=== PATIENT | male | born 1975 | race Caucasian/White ===

== ENCOUNTER 2025-02-06 11:24 | Emergency (ER) | payer MEDICAID ==
[~2025-02-06] VITALS: Ht 172.7 cm; Wt 81.6 kg
[2025-02-06] MEDS ORDERED: oxyCODONE/APAP (5/325 MG) 1 UDTAB TABLET ONE ×2 (12:17→14:21)
[2025-02-06] MEDS ORDERED: LIDOCAINE 5% (PATCH) 1 EA PATCH TP ONE (12:17)
[2025-02-06] MEDS: oxyCODONE/APAP (5/325 MG) 1 UDTAB TABLET PO ONE ×2 (12:30→14:22)
[2025-02-06] MEDS: LIDOCAINE 5% (PATCH) 1 EA PATCH TP ONE (12:31)
[2025-02-06] MEDS ORDERED: IBUP-1955 PO (14:16)
[2025-02-06] MEDS ORDERED: LIDO30AD10 TP (14:16)
[2025-02-06 14:28] VITALS: BP 121/76; TEMP 98; O2SAT 98
== END 2025-02-06 14:45 | disposition home or self-care (01) ==
LOC: ER 11:28
DX: S22.41XA Multiple fractures of ribs, right side, initial encounter for closed fracture (principal); M25.511 Pain in right shoulder; E11.9 Type 2 diabetes mellitus without complications; I11.9 Hypertensive heart disease without heart failure; E78.5 Hyperlipidemia, unspecified; Z87.19 Personal history of other diseases of the digestive system; Z59.12 Inadequate housing utilities; W01.0XXA Fall on same level from slipping, tripping and stumbling without subsequent striking against object, initial encounter; Y93.01 Activity, walking, marching and hiking; Y92.009 Unspecified place in unspecified non-institutional (private) residence as the place of occurrence of the external cause; Y99.8 Other external cause status
CPT/HCPCS: 71100-TC; 73010-TC